=== PATIENT | female | born 1965 | race Caucasian/White ===

== ENCOUNTER 2016-11-05 08:44 | Emergency (ER) | payer BC ==
[2016-11-05] MEDS ORDERED: ACYCLOVIR 200 MG CAPSULE PO STA (09:25)
[2016-11-05] MEDS ORDERED: ACYCLOVIR 200 MG CAPSULE PO ONE (09:35)
== END 2016-11-05 09:48 | disposition home or self-care (01) ==
DX: B02.30 Zoster ocular disease, unspecified (principal)
CPT/HCPCS: 99283; A9270

== ENCOUNTER 2018-12-13 08:14 | Emergency (ER) | payer BC ==
[2018-12-13 08:25] VITALS: BP 138/100
--- NOTE | 2018-12-13 09:15 | XRAY Report ---
Reason: fall down stairs, L 5th MT pain Procedure Date: 12/13/2018 Accession Number: [id number] / [id number] Procedure: XR - Foot 3 View LT CPT Code: FULL RESULT: EXAM: LEFT FOOT RADIOGRAPHY EXAM DATE: 12/13/2018 08:39 AM. CLINICAL HISTORY: Fall down stairs, L 5th MT pain. COMPARISON: None. TECHNIQUE: 3 views. FINDINGS: Bones: Chip avulsion fractures are present arising from the cephalad aspect of the talus and navicular with the fracture fragments measuring up to 3-4 mm as well as from the lateral distal margin of the left calcaneus seen best on the frontal view. Degenerative spurring. No bony erosions. Joints: Degenerative changes of the left first MTP joint, tarsometatarsal joints and left midfoot. No dislocation. Calcaneonavicular bony coalition noted. Soft Tissues: Soft tissue swelling of the left foot large along the cephalad aspect of the mid proximal left foot. IMPRESSION: 1. Small chip avulsion fractures from the cephalad aspect of the talus, navicular and lateral distal margin of the left calcaneus. RADIA
--- NOTE | 2018-12-13 09:23 | ED Physician Documentation ---
PD HPI LOWER EXT INJURY - Stated complaint Stated Complaint: LT ANKLE INJURY - Chief complaint Chief Complaint: Ext Problem - History obtained from History obtained from: Patient - History of Present Illness PD HPI LOW EXT INJURY LOCATION: Left, Foot Type of injury: Twist Where injury occurred: Home Timing - onset: How many hours ago (1) Timing - duration: Hours (1) Timing - details: Abrupt onset Pain level max: 8 Pain level now: 5 Improved by: Rest, Ice, Immobilization Worsened by: Moving, Other (walking) Associated symptoms: No: Weakness, Numbness, Tingling, Swelling Similar symptoms before: Has not had sx before (states has fractured this foot in the past.) Review of Systems Constitutional: denies: Fever, Chills Throat: denies: Sore throat Cardiac: denies: Chest pain / pressure Respiratory: denies: Cough Skin: denies: Rash Musculoskeletal: denies: Neck pain, Back pain PD PAST MEDICAL HISTORY - Past Medical History Past Medical History: Yes Endocrine/Autoimmune: HyPOthyroidism - Past Surgical History Past Surgical History: No - Present Medications Home Medications: Ambulatory Orders Medication Instructions Recorded Confirmed Acyclovir [Zovirax] 800 mg PO 5XD #50 tablet 11/05/16 HYDROcod/ACETAM 5/325 [[place] 5/325] 1 - 2 ea PO Q6H PRN #30 tablet 11/05/16 Levothyroxine Sodium 11/05/16 - Allergies Allergies/Adverse Reactions: Allergies Allergy/AdvReac Type Severity Reaction Status Date / Time No Known Drug Allergies Allergy Verified 11/05/16 08:54 - Living Situation Living Situation: reports: With family Living Arrangement: reports: At home - Social History Does the pt smoke?: No Smoking Status: Never smoker PD ED PE NORMAL - Vitals Vital signs reviewed: Yes - General General: Alert and oriented X 3, No acute distress - HEENT HEENT: Moist mucous membranes - Neck Neck: Supple, no meningeal sign - Derm Derm: Warm and dry - Extremities Extremities: Other (L foot - Tender to palpation over the base of the fifth metatarsal as well as the top of the foot. Neurovascular intact. Normal ankle exam.) - Neuro Neuro: Alert and oriented X 3 Results - Vitals Vitals: Vital Signs - 24 hr 12/13/18 08:22 Temperature 36.7 C Heart Rate 77 Respiratory 16 Rate Blood Pressure 138/100 H O2 Saturation 100 Oxygen O2 Source Room air - Rads (name of study) Left foot x-ray Radiology: Prelim report reviewed, EMP read contemporaneously, See rad report (Small chip avulsion fractures from the cephalad aspect of the talus, navicular and lateral distal margin of the left calcaneus. ) PD MEDICAL DECISION MAKING - ED course Complexity details: reviewed results, re-evaluated patient, considered differential, d/w patient, d/w family ED course: 53-year-old female with several chip fractures in the left foot. Placed in a walking boot. Declines pain medication. We will have her follow-up with Orth O for further care. Patient counseled regarding signs and symptoms for which I believe and urgent re-evaluation would be necessary. Patient with good understanding of and agreement to plan and is comfortable going home at this time This document was made in part using voice recognition software. While efforts are made to proofread this document, sound alike and grammatical errors may occur. Departure - Departure Disposition: 01 Home, Self Care Clinical Impression: Foot fracture, left Qualifiers: Encounter type: initial encounter Fracture type: closed Qualified Code(s): S92.902A - Unspecified fracture of left foot, initial encounter for closed fracture Condition: Good Instructions: ED Fx Foot Follow-Up: Ashli Rosas MD [Primary Care Provider] - [facility] [Provider Group] - Within 1 week Comments: Return if you worsen. stay in the boot until released by orthopedics. Your xray results: Small chip avulsion fractures from the cephalad aspect of the talus, navicular and lateral distal margin of the left calcaneus. . Discharge Date/Time: 12/13/18 09:35
== END 2018-12-13 09:35 | disposition home or self-care (01) ==
LOC: ED 08:14
DX: S92.902A Unspecified fracture of left foot, initial encounter for closed fracture (principal); S92.255A Nondisplaced fracture of navicular [scaphoid] of left foot, initial encounter for closed fracture; S92.152A Displaced avulsion fracture (chip fracture) of left talus, initial encounter for closed fracture; W01.0XXA Fall on same level from slipping, tripping and stumbling without subsequent striking against object, initial encounter; X50.1XXA Overexertion from prolonged static or awkward postures, initial encounter; Y92.009 Unspecified place in unspecified non-institutional (private) residence as the place of occurrence of the external cause; E03.9 Hypothyroidism, unspecified
CPT/HCPCS: 99283